=== PATIENT | male | born 1975 | race Caucasian/White ===

== ENCOUNTER 2018-12-27 13:37 | Inpatient (IN) | payer MEDICAID, OTHER ==
[~2018-12-27] VITALS: Ht 180.3 cm; Wt 82.9 kg
[2018-12-27] MEDS ORDERED: HYDROmorphONE 0.5 MG/0.5 ML SYG IV STA ×4 (13:58→23:37)
[2018-12-27] MEDS ORDERED: SOD CHLORIDE 0.9% 1,000 ML IV ONE (14:00)
[2018-12-27] MEDS ORDERED: ONDANSETRON 4 MG INJ ONE (14:09)
--- NOTE | 2018-12-27 14:25 | ERD ---
ER Documentation Chief Complaint Chief Complaint fall 3ft c/o left rib pain, left arm pain and abrasion to left side of head HPI The patient is a 43-year-old male, presenting to the ER because he fell from the moving truck about 3 feet high while he was moving. On his left side, complains of left forehead, left shoulder, left ribs, right knee pain. He denies neck pain, chest pain, dyspnea, abdominal pain, vomiting, dysuria, diarrhea. He does not smoke, drinks socially, denies illicit drug He was treated with fentanyl 100 mcg IV by EMS with good response. Past medical history/surgical history: None ROS All systems reviewed and are negative except as per history of present illness. 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 Head: Atraumatic. Forehead abrasion, no laceration Eyes: Normal Conjunctiva. No nystagmus ENT: Normal External Ears, Nose and Mouth. Neck: Full range of motion. No meningismus. Vague posterior tenderness. No crepitus Resp: Clear to auscultation bilaterally. Cardio: Regular rate and rhythm. Abd: Soft, non distended, normal bowel sounds, non tender. Skin: No petechiae or rashes. Back: No midline or flank tenderness. Ext: moderate left elbow pain, no skin violation, palpable distal pulses. Left shoulder left ribs and right knee with vague tenderness, no crepitus Neur: Awake and alert. No focal deficit Psych: Normal Mood and Affect. Result Diagram: 12/27/18182112/27/181821 Results 24 hrs Laboratory Tests Test 12/27/18 18:22 White Blood Count 13.1 10^3/ul Red Blood Count 4.82 10^6/ul Hemoglobin 14.1 g/dl Hematocrit 43.1 % Mean Corpuscular Volume 89.4 fl Mean Corpuscular Hemoglobin 29.3 pg Mean Corpuscular Hemoglobin Concent 32.7 g/dl Red Cell Distribution Width 13.6 % Platelet Count 246 10^3/UL Mean Platelet Volume 10.4 fl Immature Granulocytes % 0.400 % Neutrophils % 82.6 % Lymphocytes % 9.4 % Monocytes % 7.0 % Eosinophils % 0.3 % Basophils % 0.3 % Nucleated Red Blood Cells % 0.0 /100WBC Immature Granulocytes # 0.050 10^3/ul Neutrophils # 10.8 10^3/ul Lymphocytes # 1.2 10^3/ul Monocytes # 0.9 10^3/ul Eosinophils # 0.0 10^3/ul Basophils # 0.0 10^3/ul Nucleated Red Blood Cells # 0.0 10^3/ul Sodium Level 141 mmol/L Potassium Level 4.1 mmol/L Chloride Level 106 mmol/L Carbon Dioxide Level 26 mmol/L Anion Gap 9 Blood Urea Nitrogen 9 mg/dl Creatinine 0.79 mg/dl Est Glomerular Filtrat Rate mL/min > 60 mL/min Glucose Level 101 mg/dl Calcium Level 8.8 mg/dl Current Medications Medications Dose Sig/[place] Start Time Status Last (Trade) Ordered Route PRN Stop Time Admin Dose Reason Admin 1 mg ONCE STAT 12/27/18 DC 12/27/18 Hydromorphone IV 13:58 14:07 HCl 12/27/18 14:01 (Dilaudid) Sodium 1,000 ml @ Q1H ONCE 12/27/18 DC 12/27/18 Chloride 1,000 mls/hr IV 14:00 14:07 12/27/18 14:59 Ondansetron 4 mg STK-MED 12/27/18 DC HCl (Zofran ONCE .ROUTE 14:09 Inj) 12/27/18 14:10 2 mg ONCE STAT 12/27/18 DC 12/27/18 Hydromorphone IV 15:13 15:17 HCl 12/27/18 15:14 (Dilaudid) 1 mg ONCE STAT 12/27/18 DC 12/27/18 Hydromorphone IV 16:50 17:36 HCl 12/27/18 16:51 (Dilaudid) 1 mg ONCE STAT 12/27/18 DC 12/27/18 Hydromorphone IV 18:05 18:10 HCl 12/27/18 18:06 (Dilaudid) Sodium 1,000 ml @ [id number] IV 12/27/18 12/27/18 Chloride 75 mls/hr 18:33 19:33 IV Flush 3 ml PER 12/27/18 (NS 3 ml) PROTOCOL IV 19:00 Ondansetron 4 mg Q6H PRN 12/27/18 HCl (Zofran IV 19:00 Inj) NAUSEA/VOMITI NG 1 mg Q4H PRN 12/27/18 Hydromorphone IV .SEVERE 19:00 HCl PAIN 7-10 (Dilaudid) Nicotine 1 patch DAILY 12/27/18 (Nicoderm 14 TRANSDERM 19:00 Mg/ 24hr) Procedures/MDM [place] [address] Radiology Main Line: [phone] DIAGNOSTIC IMAGING REPORT Patient: MONI DURANT : 1975 Age: 43 Sex: M MR #: [id number] DOS: 12/27/18 1423 Ordering MD: JIMMY BYRD MD Location: E/R Room/Bed: PROCEDURE: XR knee CLINICAL INDICATION: knee pain. TECHNIQUE: Three portable views of the right knee were obtained. COMPARISON: None. FINDINGS: There is no acute fracture or dislocation. Osseous structures are intact. There are minimal osteoarthritic changes of the medial tibiofemoral compartment. Joint spaces are maintained. There is no knee joint effusion. IMPRESSION: 1. No acute osseous abnormality. RPTAT: DD Physician Tj Date Time Electronically viewed and signed by Physician Tj on 12/27/2018 17:11 RM/ CC: JIMMY BYRD MD [id number] [place] [address] Radiology Main Line: [phone] DIAGNOSTIC IMAGING REPORT Patient: MONI DURANT : 1975 Age: 43 Sex: M MR #: [id number] DOS: 12/27/18 1358 Ordering MD: JIMMY BYRD MD Location: E/R Room/Bed: PROCEDURE: CT BRAIN WITHOUT CONTRAST. CLINICAL INDICATION: Headache status post fall TECHNIQUE: A CT of the brain was performed on a multidetector high-resolution CT scanner utilizing axial imaging from the skull base through the vertex without IV contrast. Multiplanar reformatted images were made. Images were reviewed on a PACS workstation. The CTDIvol is 45.8 mGy and the DLP is 900 mGycm. One or more of the following dose reduction techniques were used: - Automated exposure control. - Adjustment of the mA and/or kV according to patient size. - Use of iterative reconstruction technique. DICOM images are available. COMPARISON: None FINDINGS: The posterior fossa structures are unremarkable. The jazmyne, midbrain, and medulla appear to be with normal limits. There is no evidence of acute intracranial hemorrhage, infarct, or extra-axial fluid collection. No gross mass effect or midline shift. Cerebral sulci, cisternal spaces, and ventricles are within normal limits. The visualized paranasal sinuses are clear. The mastoid air cells are well- aerated. The calvarium is unremarkable. IMPRESSION: 1. No evidence of acute intracranial hemorrhage, infarct, or extra-axial fluid collection. 2. Unremarkable CT brain. If clinical symptoms persist, consider follow-up MRI of the brain. RPTAT: AARR Physician Claudia Date Time Electronically viewed and signed by Physician Claudia on 12/27/2018 15:09 JL/ CC: JIMMY BYRD MD [id number] [place] [address] Radiology Main Line: [phone] DIAGNOSTIC IMAGING REPORT Patient: MONI DURANT : 1975 Age: 43 Sex: M MR #: [id number] DOS: 12/27/18 1358 Ordering MD: JIMMY BYRD MD Location: E/R Room/Bed: PROCEDURE: CT Cervical Spine. CLINICAL INDICATION: None TECHNIQUE: A CT of the cervical spine was performed on high-resolution multi detector CT scanner utilizing thin section axial images from the skull base through the thoracic inlet. Sagittal and coronal reformatted images were made. The CTDIvol is 22.3 mGy and the DLP is 580 mGycm. 1 or more of the following dose reduction techniques were utilized: - Automated exposure control - Adjustment of the mA and/or kV according to patient size - Use of iterative reconstruction technique DICOM images are availabe. COMPARISON: None. FINDINGS: The lateral masses of C1 are symmetric and C2. No evidence of acute fractures of the C1 ring. The dens is unremarkable. Normal lordotic curvature of the cervical spine is identified. There is no evidence of acute fractures or subluxation of the visualized cervical spine. There is no significant prevertebral soft tissue swelling. The facets are lined symmetrically. There is mild multilevel degenerative disease. The trachea is midline. The thyroid gland is unremarkable. The paraspinal soft tissues are unremarkable. The lung apices demonstrates apical scarring. IMPRESSION: 1. No evidence of acute fractures or subluxation of the visualized cervical spine. There is no significant prevertebral soft tissue swelling. RPTAT: AARR Physician Claudia Date Time Electronically viewed and signed by Physician Claudia on 12/27/2018 15:11 JL/ CC: JIMMY BYRD MD [id number] [place] [address] Radiology Main Line: [phone] DIAGNOSTIC IMAGING REPORT Patient: MONI DURANT : 1975 Age: 43 Sex: M MR #: [id number] DOS: 12/27/18 1358 Ordering MD: JIMMY BYRD MD Location: E/R Room/Bed: PROCEDURE: XR chest. CLINICAL INDICATION: Left rib pain TECHNIQUE: Portable AP view of the chest was obtained. COMPARISON: None. FINDINGS: Cardiomediastinal silhouette is normal. There is no pneumothorax or pleural effusion. There is no focal pulmonic consolidation. There is subtle buckling of the left lateral seventh rib. IMPRESSION: 1. No acute pulmonary abnormality. 2. Subtle buckling of the left lateral seventh rib, could represent nondisplaced fracture. If clinically warranted, dedicated rib radiographs could be obtained. RPTAT: DD Physician Tj Date Time Electronically viewed and signed by Brittany Carmichael Physician on 12/27/2018 17:14 RM/ CC: JIMMY BYRD MD [id number] [place] [address] Radiology Main Line: [phone] DIAGNOSTIC IMAGING REPORT Patient: MONI DURANT : 1975 Age: 43 Sex: M MR #: [id number] DOS: 12/27/18 1358 Ordering MD: JIMMY BYRD MD Location: E/R Room/Bed: PROCEDURE: XR Elbow. CLINICAL INDICATION: Pain TECHNIQUE: 2 views of the left elbow were obtained. COMPARISON: None. FINDINGS: Nonstandard views were obtained. There are a comminuted displaced proximal radial and ulnar fractures. Evaluation of distal humerus for fracture is limited on this study. Evaluation of joint alignment is limited, however joint appears malaligned. Soft tissue swelling surrounds the elbow. IMPRESSION: 1. Limited examination due to suboptimal positioning. 2. Comminuted displaced proximal radial and ulnar fractures. 3. Limited evaluation for distal humeral fracture. 4. Malaligned elbow joint, however evaluation is limited. 5. Soft tissue swelling of the elbow. RPTAT: DD Brittany Carmichael Physician Date Time Electronically viewed and signed by Brittany Carmichael Physician on 12/27/2018 16:52 RM/ CC: JIMMY BYRD MD [id number] [place] [address] Radiology Main Line: [phone] DIAGNOSTIC IMAGING REPORT Patient: MONI DURANT : 1975 Age: 43 Sex: M MR #: [id number] DOS: 12/27/18 1358 Ordering MD: JIMMY BYRD MD Location: E/R Room/Bed: PROCEDURE: XR humerus. CLINICAL INDICATION: Trauma, pain. TECHNIQUE: One-view of the left humerus were obtained. COMPARISON: None. FINDINGS: A limited one-view examination was performed. Displaced proximal ulnar and radial fracture is noted. Evaluation of distal humerus for fracture is limited on this examination Alignment of elbow joint cannot be well evaluated on this examination. Soft tissue swelling surrounds the elbow. IMPRESSION: 1. Limited one-view examination. 2. Displaced proximal ulnar and radial fractures. 3. Limited evaluation of distal humerus for fracture. Limited evaluation for elbow dislocation. 4. Soft tissue swelling surrounds the elbow. RPTAT: DD Brittany Carmichael Physician Date Time Electronically viewed and signed by Brittany Carmichael Physician on 12/27/2018 16:48 RM/ CC: JIMMY BYRD MD [id number] [place] [address] Radiology Main Line: [phone] DIAGNOSTIC IMAGING REPORT Patient: MONI DURANT : 1975 Age: 43 Sex: M MR #: [id number] DOS: 12/27/18 1358 Ordering MD: JIMMY BYRD MD Location: E/R Room/Bed: PROCEDURE: XR shoulder CLINICAL INDICATION: shoulder pain. TECHNIQUE: Frontal view of the left shoulder was obtained. COMPARISON: None. FINDINGS: Limited one-view examination was performed. As presented, no acute fracture is seen. Alignment of the acromioclavicular joint is normal. Alignment of the g lenohumeral joint cannot be completely evaluated on this limited study. IMPRESSION: 1. No visible fracture. 2. Cannot evaluate glenohumeral joint alignment on limited one-view examination. RPTAT: DD Physician Tj Date Time Electronically viewed and signed by Physician Tj on 12/27/2018 16:49 RM/ CC: JIMMY BYRD MD [id number] left Elbow CT is pending MEDICAL MAKING DECISION: The patient is a 43-year-old male, presenting with acut e proximal radial and ulnar fracture, acute left distal humeral fracture, suspected left 7th rib fracture. He was treated with Dilaudid 1 mg IV times for over many hours for pain with good response. He was treated with left posterior splint. Post splint neurovascular is intact. The differential diagnoses considered include but are not limited to left shoulder fracture/contusion/sprain, suspected left 7 rib fracture, pneumothorax, pulmonary contusion, cardiac contusion Presentation: I discussed the patient with the on-call orthopedist physician Dr. Santos at 6:20, who was made aware of the patient condition, the x-ray finding and the pending CT. He accepted the consult Departure Diagnosis: Primary Impression: Fracture of left proximal ulna Additional Impressions: Closed fracture of left proximal radius Closed fracture of left distal humerus Condition: Stable Comments The patient's blood pressure was elevated (>120/80) but appears stable without evidence of hypertension emergency or urgency. The patient was counseled about the risks of hypertension and urged to pursue outpatient monitoring and therapy within a week with their primary care physician. I discussed the findings with the patient. I discussed the patient with the hospitalist Dr Umaña who was made aware of the lab, the treatment, the patient condition. The patient is admitted to [facility] Disclaimer: Inadvertent spelling and grammatical errors are likely due to EHR/dictation software use and do not reflect on the overall quality of patient care. Also, please note that the electronic time recorded on this note does not necessarily reflect the actual time of the patient encounter. JIMMY BYRD MD Dec 27, 2018 14:25
[2018-12-27] MEDS ORDERED: HYDROmorphONE 2 MG/ML SYG IV STA (15:13)
--- NOTE | 2018-12-27 18:38 | HP ---
Date/Time of Note Date/Time of Note DATE: 12/27/18 TIME: 18:35 Assessment/Plan VTE Prophylaxis SCD applied (from Nsg): Yes Pharmacological prophylaxis: NA/contraindicated Pharm contraindication: low risk/ambulating Lines/Catheters IV Catheter Type (from Nrsg): Saline Lock Assessment/Plan Assessment/Plan 43 yo man no PMH presents with complex L arm fracture #L elbow fracture - Patient is medically optimized for open orthopedic surgery of the L arm with no further cardiac or medical workup needed. 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 - IV opioid analgesia - L arm immobilized until surgery - NPO, IV fluids #Tobacco use - nicotine patch while inpatient DVT: SCDs GI: None Result Diagram: 12/27/18 1822 HPI/ROS Admit Date/Time Admit Date/Time 27 December 2018 Hx of Present Illness Mr. Swain is a 43 yo man with no PMH who presents with L arm pain after falling off a moving truck. He was moving things off a moving truck when he fell off and landed on his L arm and L chest. Both are painful now. Has L rib pain with deep inspiration. In the ED he was afebrile, vitals unremarkable. XR showed displaced proximal ulcer, radial and distal humerus fracture. Dr. Santos consulted. ROS 12 point review of systems done, negative except per HPI PMH/Family/Social Past Medical History Medical History: no pertinent history Coded Allergies: No Known Allergy (Unverified , 12/27/18) Past Surgical History R achilles tendon rupture s/p repair L knee meniscus surgery Both soccer related Social History Alcohol Use: occasionally (drinks a 6 pack on thursday and thursday only) Smoking Status: Current every day smoker (1/2 pack per day) Drug Use: none Exam/Review of Systems Vital Signs Vitals Vital Signs Date Temp Pulse Resp B/P (MAP) Pulse Ox O2 O2 Flow FiO2 Time Delivery Rate 12/27/18 98.1 77 20 129/106 100 13:52 (114) Exam Exam Gen: well developed man in no acute distress Eyes: EOMI, no icterus HEENT: Moist mucous membranes, clear oropharynx Neck: No JVD Card: Regular rate and rhythm, no murmurs Chest: L mid chest pain to deep palpation Pulm: Clear to auscultation bilaterally Abd: Soft, nondistended, nontender. No palpable hepatosplenomegaly Ext: L arm flexed, swollen past elbow. Exquisite pain with any movement. Peripheral pulses and motor intact. Skin: warm, dry, well perfused VANI LEARY MD Dec 27, 2018 18:38
[2018-12-27] MEDS ORDERED: ONDANSETRON 4 MG INJ IV PRN (19:00)
[2018-12-27] MEDS ORDERED: NACL 0.9% 3 ML SYG IV SCH (19:00)
[2018-12-27] MEDS: SOD CHLORIDE 0.9% 1,000 ML IV SCH (19:33)
[2018-12-27] MEDS: HYDROmorphONE 1 MG/ML SYG IV PRN (21:59)
[2018-12-27] MEDS ORDERED: HYDR-3980 PO (22:31)
[2018-12-27] MEDS ORDERED: NALO4SPR NS (22:31)
[2018-12-27] MEDS: NICOTINE (14 MG/24 HR) PATCH TRANSDERM SCH (22:53)
[2018-12-27 23:30] VITALS: BP 175/89; PULSE 58; RESP 18
[2018-12-27 23:42] VITALS: Ht 180.3 cm; Wt 82.9 kg
[2018-12-28 01:00] VITALS: BP 160/87; PULSE 59; RESP 20
[2018-12-28] MEDS: HYDROCODONE/APAP (5/325) TAB PO PRN ×3 (01:00→16:50)
--- NOTE | 2018-12-28 02:20 | CONS ---
DATE OF ADMISSION: 12/27/2018 DATE OF CONSULTATION: 12/27/2018 TYPE OF CONSULTATION: Emergency orthopedic surgical. HISTORY OF PRESENT ILLNESS: The patient is a 43-year-old right-handed male who was brought into the emergency room because of the painful swelling and limit of motion involving his left elbow. Accordi ng to available information, he had a fall from a truck, landing on his left elbow. Following the fa ll, he was having severe pain and swelling and limit of motion and he was brought into the emergency room. Denies any other injuries at this time. Following his initial evaluation in the emergency fabian m, his left upper extremity was immobilized in a long arm posterior splint. PHYSICAL EXAMINATION: My examination revealed a 43-year-old male who is alert and oriented. He was not in acute distress. He was complaining of pain and swelling involving his left elbow. The limite d examination because of the splint revealed that there were no obvious signs of neurovascular compro mise. There were no sensory changes and he was able to move his fingers. His finger is warm and pin k. DIAGNOSTIC STUDIES: X-rays of the left elbow along with the CT scan of the left elbow was available for my review and it revealed following: There is a severely comminuted and displaced fracture invol ving the olecranon process of the left elbow. Part of the fractured bone was displaced from its jones culation. There also was a comminuted and displaced fracture involving the radial head. On the avai lable x-rays whether he has a fracture involving the distal end of the humerus or not is not clear. DIAGNOSTIC IMPRESSION: Severely comminuted and displaced fracture involving the left elbow including severely comminuted and displaced olecranon fracture and severely comminuted and displaced fracture involving the radial head with obvious dislocation. RECOMMENDATIONS: For treatment will be to surgery as soon as he can be medically cleared for surgery for open reduction and internal fixation of the olecranon fracture of the left elbow along with the replacement arthroplasty replacing the radial head with artificial head. During the discussion of the treatment and possible outcome, possibility of having compromise in the range of motion of his left elbow following the surgery was discussed. However, the patient was not easily willing to accept the possible compromise including the reduced limit of motion of the left el bow. Because of his unwillingness, a possible second opinion consultation was discussed and the marifer ent and his family members are willing to have a second opinion consultation as an outpatient in [facility]. They were advised to try to get a second opinion consultation in a [facility] and there were also informed they are welcome to come back for recommended surgical treatment if they choose so following the second opinion consultation. Dictated By: JAYY BARRON MD IK/NTS Conf#: [id number] DID#: [id number] CC: VANI LEARY MD;*EndCC*
[2018-12-28] MEDS: HYDROmorphONE 1 MG/ML SYG IV PRN ×5 (04:13→19:43)
[2018-12-28 04:26] VITALS: BP 137/83; PULSE 55
[2018-12-28 07:33] VITALS: BP 145/87; PULSE 59; RESP 19
[2018-12-28] MEDS: SOD CHLORIDE 0.9% 1,000 ML IV SCH ×2 (08:15→20:59)
[2018-12-28] MEDS: NICOTINE (14 MG/24 HR) PATCH TRANSDERM SCH (10:25)
[2018-12-28 15:29] VITALS: BP 131/72; RESP 18
--- NOTE | 2018-12-28 15:40 | PN ---
Date/Time of Note Date/Time of Note DATE: 12/28/18 TIME: 15:37 Assessment/Plan VTE Prophylaxis SCD applied (from Nsg): Yes Pharmacological prophylaxis: NA/contraindicated Pharm contraindication: low risk/ambulating Lines/Catheters IV Catheter Type (from Nrsg): Peripheral IV Urinary Cath still in place: No Assessment/Plan Assessment/Plan 43 yo man no PMH presents with complex L arm fracture #L elbow fracture - Patient is medically optimized for open orthopedic surgery of the L arm with no further cardiac or medical workup needed. 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 - IV opioid analgesia - L arm immobilized until surgery - NPO, IV fluids - Dr. Santos recommends transfer to higher level of care for specialized orthopedic intervention. This should be done as soon as possible; any delay may cause permanent damage to the limb. #Tobacco use - nicotine patch while inpatient DVT: SCDs GI: None Dispo: Case management to arrange transfer to higher level of care for specialized orthopedic evaluation. Result Diagram: 12/28/18 0423 12/28/18422 Subjective 24 Hr Interval Summary Free Text/Dictation No acute overnight events. Patient seen by Dr. Santos last night, who recommended evaluation by specialist. Discussed options; patient would prefer intra-hospital transfer instead of being discharged and trying to seek out an orthopedic surgeon. Exam/Review of Systems Exam Vitals Vital Signs Date Temp Pulse Resp B/P (MAP) Pulse Ox O2 O2 Flow FiO2 Time Delivery Rate 12/28/18 131/72 98 15:29 (91) 12/28/18 98.2 59 Room Air 07:33 Intake and Output 12/27/18 12/27/18 12/28/18 1414:59 22:59 06:59 IntakeIntake Total 750 ml OutputOutput Total 650 ml BalanceBalance 100 ml Exam Gen: well developed man in no acute distress Eyes: EOMI, no icterus HEENT: Moist mucous membranes, clear oropharynx Neck: No JVD Card: Regular rate and rhythm, no murmurs Chest: L mid chest pain to deep palpation Pulm: Clear to auscultation bilaterally Abd: Soft, nondistended, nontender. No palpable hepatosplenomegaly Ext: L arm flexed, swollen past elbow. Wrapped in YESI bandage. Exquisite pain with any movement. Peripheral pulses, sensation, and motor intact. Skin: warm, dry, well perfused Results Results 24hrs Laboratory Tests Test 12/27/18 18:22 12/28/18 04:23 White Blood Count 13.1 H 10.2 # Red Blood Count 4.82 4.56 L Hemoglobin 14.1 13.4 L Hematocrit 43.1 40.3 L Mean Corpuscular Volume 89.4 88.4 Mean Corpuscular Hemoglobin 29.3 29.4 Mean Corpuscular Hemoglobin Concent 32.7 33.3 Red Cell Distribution Width 13.6 13.4 Platelet Count 246 253 Mean Platelet Volume 10.4 10.9 H Immature Granulocytes % 0.400 0.400 Neutrophils % 82.6 H 64.1 Lymphocytes % 9.4 L 22.4 Monocytes % 7.0 11.1 H Eosinophils % 0.3 1.6 Basophils % 0.3 0.4 Nucleated Red Blood Cells % 0.0 0.0 Immature Granulocytes # 0.050 H 0.040 H Neutrophils # 10.8 H 6.6 Lymphocytes # 1.2 2.3 Monocytes # 0.9 1.1 H Eosinophils # 0.0 0.2 Basophils # 0.0 0.0 Nucleated Red Blood Cells # 0.0 0.0 Sodium Level 141 139 Potassium Level 4.1 3.7 Chloride Level 106 105 Carbon Dioxide Level 26 26 Anion Gap 9 8 Blood Urea Nitrogen 9 7 Creatinine 0.79 0.77 Est Glomerular Filtrat Rate mL/min > 60 > 60 Glucose Level 101 107 Calcium Level 8.8 8.6 Hemoglobin A1c 5.2 Medications Medication Current Medications Sodium Chloride 1,000 ml @ 75 mls/hr [id number] IV Last administered on 12/28/18at 08:15; Admin Dose 75 MLS/HR; Start 12/27/18 at 18:33 IV Flush (NS 3 ml) 3 ml PER PROTOCOL IV ; Start 12/27/18 at 19:00 Ondansetron HCl (Zofran Inj) 4 mg Q6H PRN IV NAUSEA/VOMITING; Start 12/27/18 at 19:00 Hydromorphone HCl (Dilaudid) 1 mg Q4H PRN IV .SEVERE PAIN 7-10 Last administered on 12/28/18at 11:48; Admin Dose 1 MG; Start 12/27/18 at 19:00 Nicotine (Nicoderm 14 Mg/ 24hr) 1 patch DAILY TRANSDERM Last administered on 12/28/18at 10:25; Admin Dose 1 PATCH; Start 12/27/18 at 19:00 Acetaminophen/ Hydrocodone Bitart ([place] (5/325)) 1 tab Q6H PRN PO MODERATE PAIN LEVEL 4-6 Last administered on 12/28/18 07:26; Admin Dose 1 TAB; Start 12/28/18 at 00:00 VANI LEARY MD Dec 28, 2018 15:40
[2018-12-28 20:03] VITALS: BP 135/79; PULSE 63; RESP 16
[2018-12-28] MEDS: HYDROCODONE/APAP (10/325) TAB PO PRN (22:00)
[2018-12-29] MEDS: HYDROmorphONE 1 MG/ML SYG IV PRN ×3 (01:19→17:48)
[2018-12-29 01:54] VITALS: BP 136/86; PULSE 101; RESP 18
[2018-12-29] MEDS: HYDROCODONE/APAP (10/325) TAB PO PRN ×3 (04:21→21:41)
[2018-12-29 08:09] VITALS: BP 139/86; PULSE 66; RESP 18
[2018-12-29] MEDS: NICOTINE (14 MG/24 HR) PATCH TRANSDERM SCH (08:46)
[2018-12-29] MEDS: SOD CHLORIDE 0.9% 1,000 ML IV SCH (10:55)
--- NOTE | 2018-12-29 11:24 | PN ---
Date/Time of Note Date/Time of Note DATE: 12/29/18 TIME: 11:20 Assessment/Plan VTE Prophylaxis Risk score (from Nsg)>0 risk: 4 SCD applied (from Ns): Yes Pharmacological prophylaxis: NA/contraindicated Pharm contraindication: low risk/ambulating Lines/Catheters IV Catheter Type (from Nrsg): Peripheral IV Urinary Cath still in place: No Assessment/Plan Assessment/Plan 43 yo man no PMH presents with complex L arm fracture #L elbow fracture - Patient is medically optimized for open orthopedic surgery of the L arm with no further cardiac or medical workup needed. 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 - IV opioid analgesia - L arm immobilized until surgery - No surgery scheduled. Resumed diet. - Dr. Santos recommends transfer to higher level of care for specialized orthopedic intervention. This should be done as soon as possible; any delay may cause permanent damage to the limb. #Tobacco use - nicotine patch while inpatient DVT: SCDs GI: None Dispo: Requires transfer to higher level of care for specialized orthopedic evaluation. Result Diagram: 12/28/183 12/28/18422 Subjective 24 Hr Interval Summary Free Text/Dictation No acute overnight events. Exam/Review of Systems Exam Vitals Vital Signs Date Temp Pulse Resp B/P (MAP) Pulse Ox O2 O2 Flow FiO2 Time Delivery Rate 12/29/18 98.3 66 18 139/86 99 Room Air 08:09 (103) Intake and Output 12/28/18 12/28/18 12/29/18 1414:59 22:59 06:59 IntakeIntake Total 1650 ml 640 ml OutputOutput Total 500 ml 600 ml BalanceBalance 1150 ml 40 ml Exam Gen: well developed man in no acute distress Eyes: EOMI, no icterus HEENT: Moist mucous membranes, clear oropharynx Neck: No JVD Card: Regular rate and rhythm, no murmurs Chest: L mid chest pain to deep palpation Pulm: Clear to auscultation bilaterally Abd: Soft, nondistended, nontender. No palpable hepatosplenomegaly Ext: L arm flexed, swollen past elbow. Wrapped in YESI bandage. Exquisite pain with any movement. Peripheral pulses, sensation, and motor intact. Skin: warm, dry, well perfused Medications Medication Current Medications Sodium Chloride 1,000 ml @ 75 mls/hr [id number] IV Last administered on 3/20/19at 10:55; Admin Dose 75 MLS/HR; Start 12/27/18 at 18:33 IV Flush (NS 3 ml) 3 ml PER PROTOCOL IV ; Start 12/27/18 at 19:00 Ondansetron HCl (Zofran Inj) 4 mg Q6H PRN IV NAUSEA/VOMITING; Start 12/27/18 at 19:00 Hydromorphone HCl (Dilaudid) 1 mg Q4H PRN IV .SEVERE PAIN 7-10 Last administered on 12/29/18 08:24; Admin Dose 1 MG; Start 12/27/18 at 19:00 Nicotine (Nicoderm 14 Mg/ 24hr) 1 patch DAILY TRANSDERM Last administered on 12/29/18 08:46; Admin Dose 1 PATCH; Start 12/27/18 at 19:00 Acetaminophen/ Hydrocodone Bitart ([place] (10/325)) 1 tab Q4H PRN PO MODERATE PAIN LEVEL 4-6 Last administered on 12/29/18 04:21; Admin Dose 1 TAB; Start 12/28/18 at 17:00 VANI LEARY MD Dec 29, 2018 11:24
[2018-12-29 15:22] VITALS: BP 135/79; PULSE 63; RESP 18
[2018-12-29 19:15] VITALS: BP 136/80; PULSE 78; RESP 18
[2018-12-30 02:05] VITALS: BP 119/71; PULSE 79; RESP 18
[2018-12-30] MEDS: HYDROmorphONE 1 MG/ML SYG IV PRN ×4 (03:20→23:43)
[2018-12-30 07:32] VITALS: BP 134/93; PULSE 72; RESP 18
[2018-12-30] MEDS: NICOTINE (14 MG/24 HR) PATCH TRANSDERM SCH (07:35)
[2018-12-30] MEDS: HYDROCODONE/APAP (10/325) TAB PO PRN ×2 (07:35→21:48)
[2018-12-30] MEDS ORDERED: POLYETHYLENE GLYCOL 17 GM PACKET PO SCH (09:00)
[2018-12-30] MEDS: DOCUSATE SODIUM 100 MG CAP PO SCH ×2 (09:07→20:58)
[2018-12-30 13:16] VITALS: BP 129/30; PULSE 72; RESP 18
--- NOTE | 2018-12-30 15:47 | PN ---
Date/Time of Note Date/Time of Note DATE: 12/30/18 TIME: 15:46 Assessment/Plan VTE Prophylaxis Risk score (from Nsg)>0 risk: 2 SCD applied (from Ns): Yes Pharmacological prophylaxis: NA/contraindicated Pharm contraindication: low risk/ambulating Lines/Catheters IV Catheter Type (from Nrsg): Peripheral IV Urinary Cath still in place: No Assessment/Plan Assessment/Plan 43 yo man no PMH presents with complex L arm fracture #L elbow fracture - Patient is medically optimized for open orthopedic surgery of the L arm with no further cardiac or medical workup needed. 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 - IV opioid analgesia - L arm immobilized until surgery - No surgery scheduled. Resumed diet. - Dr. Santos recommends transfer to higher level of care for specialized orthopedic intervention. This should be done as soon as possible; any delay may cause permanent damage to the limb. #Tobacco use - nicotine patch while inpatient DVT: SCDs GI: None Dispo: Requires transfer to higher level of care for specialized orthopedic evaluation. Result Diagram: 12/28/18 0423 12/28/18 0423 Subjective 24 Hr Interval Summary Free Text/Dictation No acute overnight events. Patient ambulating, brushing teeth, doing well. Exam/Review of Systems Exam Vitals Vital Signs Date Temp Pulse Resp B/P (MAP) Pulse Ox O2 O2 Flow FiO2 Time Delivery Rate 12/30/18 98.4 72 18 129/30 99 13:16 (63) 12/29/18 Room Air 15:22 Intake and Output 12/29/18 12/29/18 12/30/18 1414:59 22:59 06:59 IntakeIntake Total 760 ml 400 ml OutputOutput Total 500 ml 400 ml BalanceBalance 260 ml 400 ml -400 ml Exam Gen: well developed man in no acute distress Eyes: EOMI, no icterus HEENT: Moist mucous membranes, clear oropharynx Neck: No JVD Card: Regular rate and rhythm, no murmurs Chest: L mid chest pain to deep palpation Pulm: Clear to auscultation bilaterally Abd: Soft, nondistended, nontender. No palpable hepatosplenomegaly Ext: L arm flexed, swollen past elbow. Wrapped in YESI bandage and with sling. Exquisite pain with any movement. Peripheral pulses, sensation, and motor intact. Skin: warm, dry, well perfused Medications Medication Current Medications IV Flush (NS 3 ml) 3 ml PER PROTOCOL IV ; Start 12/27/18 at 19:00 Ondansetron HCl (Zofran Inj) 4 mg Q6H PRN IV NAUSEA/VOMITING Last administered on 12/30/18 06:46; Admin Dose 4 MG; Start 12/27/18 at 19:00 Hydromorphone HCl (Dilaudid) 1 mg Q4H PRN IV .SEVERE PAIN 7-10 Last administered on 12/30/18 14:54; Admin Dose 1 MG; Start 12/27/18 at 19:00 Nicotine (Nicoderm 14 Mg/ 24hr) 1 patch DAILY TRANSDERM Last administered on 12/30/18 07:35; Admin Dose 1 PATCH; Start 12/27/18 at 19:00 Acetaminophen/ Hydrocodone Bitart ([place] (10/325)) 1 tab Q4H PRN PO MODERATE PAIN LEVEL 4-6 Last administered on 12/30/18 07:35; Admin Dose 1 TAB; Start 12/28/18 at 17:00 Polyethylene Glycol (Miralax) 17 gm DAILY PO Last administered on 12/30/18 09:07; Admin Dose 17 GM; Start 12/30/18 at 09:00 Docusate Sodium (Colace) 100 mg BID PO Last administered on 12/30/18 09:07; Admin Dose 100 MG; Start 12/30/18 at 09:00 VANI LEARY MD Dec 30, 2018 15:47
[2018-12-30 20:26] VITALS: BP 133/84; PULSE 80; RESP 18
[2018-12-31 02:30] VITALS: BP 133/81; PULSE 78; RESP 18
[2018-12-31] MEDS: HYDROmorphONE 1 MG/ML SYG IV PRN (05:31)
[2018-12-31 07:25] VITALS: BP 116/76; PULSE 82; RESP 19
[2018-12-31] MEDS: HYDROCODONE/APAP (10/325) TAB PO PRN (08:23)
[2018-12-31] MEDS ORDERED: HYDR-3980 PO (08:54)
--- NOTE | 2018-12-31 08:57 | PDOCDIS ---
Discharge Instructions DIAGNOSIS Discharge Diagnosis Comminuted intra-articular fracture radial head, communinuted fracture of olecranon. CONDITION [id number] Patient Condition: [id number] Fair HOME CARE INSTRUCTIONS: [id number] Diet Instructions: [id number] Regular ACTIVITY: [id number] Activity Restrictions [id number] Keep L arm immobilized and Comment: non-weight bearing FOLLOW UP/APPOINTMENTS Follow-up Plan 1. Take [place] as needed for pain. Do not drive or operative machinery while taking this medication. 2. Go immediately to the [facility] emergency room ([address] [place] [address]) for surgical management of your elbow fracture. VANI LEARY MD Dec 31, 2018 08:57
--- NOTE | 2018-12-31 15:29 | DS ---
Date/Time of Note Date/Time of Note DATE: 12/31/18 TIME: 15:26 Discharge Summary Admission/Discharge Info Admit Date/Time Dec 27, 2018 at 17:57 Discharge Date/Time Dec 31, 2018 at 10:00 Discharge Diagnosis Comminuted intra-articular fracture radial head, communinuted fracture of olecranon. Patient Condition: Good Consults Dr Santos, orthopedic surgery Procedures None Hx of Present Illness Mr. Swain is a 43 yo man with no PMH who presents with L arm pain after falling off a moving truck. He was moving things off a moving truck when he fell off and landed on his L arm and L chest. Both are painful now. Has L rib pain with deep inspiration. In the ED he was afebrile, vitals unremarkable. XR showed displaced proximal ulcer, radial and distal humerus fracture. Dr. Santos consulted. Hospital Course Dr. Santos evaluated the patient and determined that due to the complex nature of his injury, he would benefit more from specialized orthopedic evaluation. In the meantime, he was fed, the elbow wrapped in YESI bandage and placed in sling. Attempted to do inter-hospital transfer to [facility] but [facility] provided inappropriate delay, over 3 days, neither confirming not denying the transfer. The patient was discharged with [place] and instructions to go to the [facility] emergency room. Home Meds Active Scripts Hydrocodone/Acetaminophen ([place] 10-325 Tablet) 1 Each Tablet, 1 TAB PO Q6H PRN for PAIN, #20 TAB Prov:VANI LEARY MD 12/31/18 Naloxone HCl nasal spray (Narcan 4 mg/0.1 mL nasal) 4 Mg [place], 4 MG NS .Q2-3MIN for OPIOID OVERDOSE, #2 SPRAY 0 Refills [place] 0.1 mL into one nostril. Repeat with second device into other nostril after 2-3 minutes if no or minimal response Prov:AYO WHITMORE MD 12/27/18 Follow-up Plan 1. Take [place] as needed for pain. Do not drive or operative machinery while taking this medication. 2. Go immediately to the [facility] emergency room ([address] [place] [address]) for surgical management of your elbow fracture. Primary Care Provider Care Physician No Primary Time spent on discharge: > 30 minutes VANI LEARY MD Dec 31, 2018 15:29
== END 2018-12-31 10:00 | disposition home or self-care (01) | DRG 563 ==
LOC: E/R 13:37 → MS1 17:57
PROVIDERS: ADMIT Internal Medicine; ATTEND Internal Medicine
DX: S52.022A Displaced fracture of olecranon process without intraarticular extension of left ulna, initial encounter for closed fracture (principal); S22.32XA Fracture of one rib, left side, initial encounter for closed fracture; S52.122A Displaced fracture of head of left radius, initial encounter for closed fracture; Z72.0 Tobacco use; V87.8XXA Person injured in other specified noncollision transport accidents involving motor vehicle (traffic), initial encounter; R51 Headache
CPT/HCPCS: 36415; 70450; 71045; 72125; 73020; 73060; 73070; 73200; 73562; 80048; 83036; 85025; 93005; 96361; 96374; 96376; J1170; J2405; J7030